=== PATIENT | female | born 2000 | race Caucasian/White ===

== ENCOUNTER 2024-06-21 22:22 | Emergency (ER) | payer SELFPAY ==
[~2024-06-21] VITALS: Ht 165.1 cm; Wt 57.5 kg
[2024-06-21 22:34] VITALS: BP 157/91; TEMP 98.4; O2SAT 100
[2024-06-21] MEDS ORDERED: ACET-683 PO (22:44)
== END 2024-06-21 23:43 | disposition left against medical advice (07) ==
LOC: M ED 22:22
DX: Z53.21 Procedure and treatment not carried out due to patient leaving prior to being seen by health care provider (principal)